=== PATIENT | male | born 1990 | race African-American/Black ===

== ENCOUNTER 2021-04-20 16:25 | Emergency (ER) | payer SELFPAY ==
[~2021-04-20] VITALS: Ht 180.3 cm; Wt 106.6 kg
[2021-04-20 16:37] VITALS: BP 151/102
--- NOTE | 2021-04-20 16:37 | NUR ---
PT CAME TO ER C/O 4TH DIGIT AVULSION/LACERATION ON THE R HAND WHILE CLIMBING A FENCE TODAY. A&OX4. SKIN IS WARM AND INTACT. RADIAL PULSES 2+ BILATERALL. LACERATION, ACTIVELY BLEADING.
[2021-04-20] MEDS ORDERED: LIDOCAINE HCL/MPF 1% 30 ML VIAL IJ ONE (16:58)
[2021-04-20] MEDS ORDERED: ACETAMINOPHEN ES 500 MG TABLET PO ONE (17:00)
[2021-04-20] MEDS ORDERED: ACETAMINOPHEN ES 500 MG TABLET ONE (17:18)
[2021-04-20] MEDS ORDERED: IBUP-1955 PO (17:49)
[2021-04-20] MEDS ORDERED: CEPH500T PO (17:49)
[2021-04-20] MEDS ORDERED: CEPHALEXIN MONOHYDRATE 500 MG CAPSULE PO ONE ×2 (17:58→18:00)
--- NOTE | 2021-04-20 18:10 | NUR ---
Patient discharged to home in stable condition. Written and verbal after care instructions given. Patient verbalizes understanding of instruction.
== END 2021-04-20 18:11 | disposition home or self-care (01) ==
LOC: ER 16:28
DX: S61.214A Laceration without foreign body of right ring finger without damage to nail, initial encounter (principal); Z60.2 Problems related to living alone; W26.8XXA Contact with other sharp object(s), not elsewhere classified, initial encounter; Y93.39 Activity, other involving climbing, rappelling and jumping off; Y92.89 Other specified places as the place of occurrence of the external cause; Y99.8 Other external cause status
CPT/HCPCS: 12002; 73140; 99283; A6403; J3490